=== PATIENT | female | born 1960 | race American Indian/Alaskan Native ===

== ENCOUNTER 2021-01-13 10:44 | Outpatient (CLI) | payer OTHER ==
--- NOTE | 2021-01-13 13:39 | XRay Report ---
LUMBAR SPINE 5 VIEWS INDICATION / CLINICAL INFORMATION: PAIN IN LEFT HIP COMPARISON: None available. FINDINGS: BONES / JOINT(S): No acute fracture or subluxation. Minimal degenerative disc disease is scattered di ffusely. SOFT TISSUES: No significant abnormality. ADDITIONAL FINDINGS: None. Signer Name: Easton Elizabeth MD Signed: 01/13/2021 1:35 PM Workstation Name: [facility]
== END 2021-01-13 10:45 | disposition home or self-care (01) ==
LOC: XRAY 10:44
PROVIDERS: ATTEND Orthopaedic Surgery
DX: M47.26 Other spondylosis with radiculopathy, lumbar region (principal); M25.552 Pain in left hip
CPT/HCPCS: 72110